=== PATIENT | male | born 1975 | race Caucasian/White ===

== ENCOUNTER 2019-03-26 21:46 | Emergency (ER) | payer BC, SELFPAY ==
[2019-03-26] VITALS (14 sets, daily range): BP systolic 125–139; BP diastolic 74–81; PULSE 67–80; RESP 12–20; TEMP 36.8; O2SAT 97–99
--- NOTE | 2019-03-26 21:50 | W.ED.GENAD ---
Discharge Plan Disposition Patient Disposition: HOME Condition: Improving Discharge Details Chief Complaint: Chest Pain Clinical Impression: Chest pain Primary Care Provider: Mary Gerardo V ED Provider: Osmany Katz Home Meds and New Rx's Prescriptions: Continued albuterol sulfate [ProAir HFA] 90 mcg/actuation Hfa Aerosol Inhaler 2 puff INHALATION Q4H PRNRF: 0 Prilosec OTC 20 mg Tablet,Delayed Release (Dr/Ec) 20 mg PO DAILY PRNRF: 0 Discharge Instructions Instructions: Chest Pain (ED) Additional Instructions: You were seen in the emergency department today for evaluation of chest pain. You need to follow-up with your primary care provider. Call in the morning to schedule an appointment. Return to the emergency department immediately if you develop any fevers, weakness, passing out, difficulty breathing, or for any other concerning or worsening symptoms at all. Medical Decision Making This patient is a 43-year-old male who presents to the emergency department with chief complaint of chest pain. Based on the history, exam, the differential is quite large including acute coronary syndrome, pneumonia. It is unlikely to be due to a pneumothorax, pericarditis, myocarditis, aortic dissection, Boerhaave syndrome, pulmonary embolism. Patient will have blood work, chest x-ray. He will then be reassessed. His EKG does not show any evidence of ischemia. He likely will be able to go home to follow-up with his primary care provider assuming his troponin is negative. Chest x-ray and lab work are all reassuring. Patient therefore will be discharged home. He is provided return precautions and discharge instructions. Medical Records Medical records reviewed: Yes I reviewed the patient's medical records. Lab Data Lab results reviewed: Yes I reviewed the patient's lab results. ECG Data Attestation: I personally reviewed and interpreted this ECG (s) as follows: Interpretation: Showing sinus rhythm, rate of 83, no ST elevation or depression, no Wellens warning, normal intervals and axis. HPI This patient is a 43-year-old male who presents to the emergency department with chief complaint of chest pain. He describes it as an ache. It has been present for 2 weeks but got worse this morning. Is been constant all day. No fevers, vomiting but he did feel nauseous today. He has had some shortness of breath. No palpitations or weakness or passing out. Pain does not radiate. It is retrosternal. No other recent illness. Patient has not had any diarrhea dysuria. Nothing really seems to make it better or worse. General Date/Time Provider Initiated Documentation: 03/26/19 21:50. Related Data Home Medications Medication Instructions Recorded Confirmed Prilosec OTC 20 mg PO DAILY PRN 03/26/19 03/26/19 albuterol sulfate [ProAir HFA] 2 puff INHALATION Q4H PRN 03/26/19 03/26/19 Allergies Allergy/AdvReac Type Severity Reaction Status Date / Time No Known Allergies Allergy Unverified 03/26/19 22:03 Review of Systems Narrative: Gen: no fevers. Card: chest pain. Resp: mild difficulty breathing. Abd: no vomiting, abd pain. The rest of the 10 point review of systems is negative except as described in the HPI and above in the ROS. [facility] Social History Smoking/Tobacco Use Status: Current-Occasional Tobacco Type: cigarettes Tobacco: How many years used: 20 Alcohol Intake: current Alcohol Intake frequency: a few times a week Alcohol type: beer Drug use: Never Substance use type: does not use Additional Social history: unable to ask d/t privacy Exam Narrative Exam Narrative: Gen: no acute distress, alert. Eyes: Pupils equal, reactive to light, EOMs intact. ENT: nose and ears normal, posterior pharynx without injection or swelling. Neck: normal ROM. Lung: Clear to auscultation bilaterally, no respiratory distress. Card: RRR, normal S1, S2, no M/R/G. 2+ radial pulses bilaterally. Abd: soft, non-tender, no hepatosplenomegaly. Upper extremity: no evidence of trauma. Lower extremity: no edema. Neuro: speech normal, no gross motor deficits. Psych: alert and oriented to person, place time, normal affect. Skin: warm, intact.
--- NOTE | 2019-03-26 22:06 | DI.RAD_ITS ---
EXAM: XR CHEST 2V PA LATERAL INDICATION: chest pain. COMPARISON: No exams were available for comparison TECHNIQUE: 2D digital imaging was performed. FINDINGS: Heart size is normal. The lungs are clear. No infiltrate, effusion or pneumothorax is seen. IMPRESSION: Negative chest x-ray.
[2019-03-26 22:21] LABS: Abs Immature Grans 0.02 k/cumm (0.0-0.09); Absolute Basophil Count 0.03 k/cumm (0.0-0.2); Absolute Eosinophil Count 0.11 k/cumm (0.0-0.7); Absolute Lymphocyte Count 2.02 k/cumm (1.2-3.4); Absolute Monocyte Count 0.66 k/cumm (0.11-0.7); Absolute Neutrophil Count 5.31 k/cumm (1.2-6.7); Basophils % 0.4; Eosinophils % 1.3; HCT 41.4 % (40.0-50.0); HGB 14.8 g/dL (13.5-17.5); Immature Grans % 0.2; Lymphocytes % 24.8; Mean Corp. HGB Concentration 35.7 g/dL (32.0-36.0); Mean Corpuscular Hemoglobin 31.7 pg (27.0-33.0); Mean Corpuscular Volume 88.7 fL (80-95); Mean Platelet Volume 9.1 fL (8.0-11.0); Monocytes % 8.1; Neutrophils % 65.2; Platelet Count 277 x1000/uL (130-400); RBC 4.67 m/cumm (4.50-6.00); RBC Distribution Width 12.5 % (11.8-14.1); White Blood Cell Count 8.15 k/cumm (4.4-10.8)
--- NOTE | 2019-03-26 22:34 | DI.VRAD_ITS ---
PROCEDURE INFORMATION: Exam: XR Chest, 2 Views Exam date and time: 03/26/2019 10:27 PM Clinical history: 43 years old, male; Chest pain; Type not specified TECHNIQUE: Imaging protocol: XR of the chest Views: 2 views. COMPARISON: No relevant prior studies available. FINDINGS: Lungs: Unremarkable. No consolidation. Pleural space: Unremarkable. No evidence of pneumothorax. Heart/Mediastinum: Unremarkable. Heart size within normal limits for technique. Bones/joints: Unremarkable. IMPRESSION: No acute findings. Dictated and Authenticated by: Schuyler Anderson MD. Ordering:DOMINGO Ceron MD
[2019-03-26 22:36] LABS: ALT 28 U/L (16-63); AST 12 U/L (15-37); Albumin 3.9 g/dL (3.4-5.0); Alkaline Phosphatase 82 U/L (46-116); BUN 10 mg/dL (7-18); Bilirubin, Total 0.3 mg/dL (0.2-1.0); CREATININE 0.93 mg/dL (0.70-1.30); Calcium 9.1 mg/dL (8.5-10.1); Chloride 104 mmol/L (98-107); Glucose 132 mg/dL (70-100); Magnesium 1.9 mg/dL (1.8-2.4); Potassium 3.5 mmol/L (3.5-5.1); Sodium 143 mmol/L (136-145); Total Protein 7.5 g/dL (6.4-8.2)
[2019-03-26] MEDS: Mylanta Suspension 30 ML CUP PO (22:37)
[2019-03-26 22:38] LABS: Troponin I < 0.05 ng/mL (0.00-0.06)
== END 2019-03-26 23:00 | disposition home or self-care (01) ==
LOC: ER 22:59
PROVIDERS: Emergency Provider Emergency Medicine; PCP Family Medicine
DX: R07.9 Chest pain, unspecified (principal)
CPT/HCPCS: 80053; 93005; 96374; 99284; 71046; 83735; 84484; 85025; 93010

== ENCOUNTER 2019-04-11 00:16 | Outpatient (CLI) | payer BC, SELFPAY ==
[2019-04-11 07:55] LABS: Calculated LDL 164 mg/dL; Cholesterol 233 mg/dL (50-200); Glucose 99 mg/dL (70-100); HDL Cholesterol 52 mg/dL (40-60); Triglyceride 88 mg/dL (30-150)
--- NOTE | 2019-04-11 08:30 | ETT_ITS ---
APPROVED REPORT Exam: Exercise Treadmill Patient Location: Out-Patient Room/Bed: Stress Nurse: Margaret Birch RN BMI: 28.88 Baseline Rhythm: NSR Indications: Chest Pain, SOB Medical History Medical History: Hyperlipidemia, Smoking Allergies: No known drug allergies Cardiac Risk Factors: Hyperlipidemia, FHX of CAD, Asthma, Smoking Pretest Chest Pain Characteristics: No chest pain Exercise History: Physically active Lung Sounds: Clear to auscultation Heart Sounds: Regular Stress Test Details Test: Exercise stress testing was performed using a Robert protocol. Rest Stress HR Resting HR: 66 bpm Max Heart Rate (APMHR): 177 bpm Resting HR Supine: 66 bpm Target HR (85% APMHR): 150 bpm Resting HR Standin bpm Max HR Achieved: 158 bpm % of APMHR: 89 Recovery HR: 89 bpm HR response to stress: Normal HR response to stress BP Resting BP: 122/80 mmHg Resting BP Supine: 122/80 mmHg Resting BP Standin/82 mmHg Max BP: 180/78 mmHg Recovery BP: 124/80 mmHg BP response to stress: Normal blood pressure response to stress. ECG Resting ECG: Sinus Rhythm Stress ECG: Sinus Tachycardia ST Change: Upsloping ST depression Lead(s): II, III Time of Change: 9min Stage: [address] Deviation: 1 mm Arrhythmia: VPC's, rare Recovery ECG: Sinus Rhythm Recovery ST Change: Normal Recovery Arrhythmia: None Clinical Time of Stop for Robert: 12:01 Reason for Termination: Fatigue Exercise duration: 12 min01 sec Highest Stage Achieved: Stage 5: 5.0 mph at 18% grade. Exercise capacity: 13.48 METs Functional Capacity: Average Capacity Stress ECG Conclusion 1. The patient exercised for 12 minutes (13.5 METS) which demonstrates good exercise capacity. 2. There were [address] elevations in the inferior leads. 3. The patient had no symptoms. 4. This represents an intermediate risk stress test. 5. The Esteves Score (6) estimates an annual cardiovascular mortality of 0% and a five year survival of 95%. Using the Esteves Score there is a low probability of any angiographic coronary disease. Protocol Used: Robert Protocol Stress Test Summary STAGE Time (mins) Speed (mph) Grade (%) HR BP SYMPTOMS METS Supine 66 122/80 Standing 75 122/82 98 1 3 1.7 10 105 130/80 98 4.6 2 6 2.5 12 114 150/80 98 7 3 9 3.4 14 132 176/84 98 10.2 4 12 4.2 16 158 178/84 97 12.9 5 15 5.0 18 17.2 1 min recovery 130 180/78 3 min recovery 99 150/78 6 min recovery 89 124/80
== END 2019-04-11 00:36 ==
PROVIDERS: PCP Family Medicine; Visit Provider Nurse Practitioner Family
DX: R07.9 Chest pain, unspecified (principal); R06.02 Shortness of breath; E78.5 Hyperlipidemia, unspecified; Z72.0 Tobacco use; Z82.49 Family history of ischemic heart disease and other diseases of the circulatory system; J45.909 Unspecified asthma, uncomplicated; Z13.220 Encounter for screening for lipoid disorders; Z13.1 Encounter for screening for diabetes mellitus
CPT/HCPCS: 36415; 80061; 82947; 93017

== ENCOUNTER 2020-05-03 17:27 | Outpatient (REF) | payer BC, SELFPAY ==
[2020-05-03 19:26] LABS: ALT 30 U/L (16-63); AST 23 U/L (15-37); Albumin 4.2 g/dL (3.4-5.0); Alkaline Phosphatase 74 U/L (46-116); Anion Gap 10.4 mmol/L (3-11); BUN 14 mg/dL (7-18); Bilirubin, Total 0.5 mg/dL (0.2-1.0); CO2 25.6 mmol/L (21.0-32.0); Calcium 9.4 mg/dL (8.5-10.1); Calculated LDL 148 mg/dL (<100); Chloride 104 mmol/L (98-107); Cholesterol 233 mg/dL (<200); Glucose 92 mg/dL (74-106); HDL Cholesterol 40 mg/dL (40-60); Potassium 4.8 mmol/L (3.5-5.1); Sodium 140 mmol/L (136-145); Total Protein 7.3 g/dL (6.4-8.2); Triglyceride 228 mg/dL (<150)
== END 2020-05-03 17:47 ==
LOC: NCHCN 17:27
PROVIDERS: PCP Family Medicine; Visit Provider Physician Assistant Medical
DX: Z00.00 Encounter for general adult medical examination without abnormal findings (principal); R07.9 Chest pain, unspecified
CPT/HCPCS: 80053; 80061

== ENCOUNTER 2021-06-17 04:18 | Outpatient (CLI) | payer BC, SELFPAY ==
[2021-06-17 09:36] LABS: ALT 26 U/L (16-63); AST 12 U/L (15-37); Alkaline Phosphatase 79 U/L (46-116); Anion Gap 8.5 mmol/L (3-11); BUN 18 mg/dL (7-18); Bilirubin, Total 0.6 mg/dL (0.2-1.0); CO2 28.5 mmol/L (21.0-32.0); CREATININE 0.9 mg/dL (0.70-1.30); Calculated LDL 140 mg/dL (<100); Chloride 102 mmol/L (98-107); Cholesterol 224 mg/dL (<200); Glucose 86 mg/dL (74-106); HDL Cholesterol 44 mg/dL (40-60); Potassium 4.1 mmol/L (3.5-5.1); Sodium 139 mmol/L (136-145); Total Protein 7.3 g/dL (6.4-8.2); Triglyceride 200 mg/dL (<150)
== END 2021-06-17 04:19 | disposition home or self-care (01) ==
LOC: LBO 04:18
PROVIDERS: PCP Family Medicine; Visit Provider Physician Assistant Medical
DX: Z00.00 Encounter for general adult medical examination without abnormal findings (principal); R79.89 Other specified abnormal findings of blood chemistry
CPT/HCPCS: 36415; 80053; 80061

== ENCOUNTER 2021-06-25 09:50 | Outpatient (CLI) | payer BC, SELFPAY ==
--- NOTE | 2021-06-25 | DI.RAD_ITS ---
Exam(s) XR CHEST 2V PA LATERAL EXAM: XR CHEST 2V PA LATERAL CLINICAL HISTORY: DYSPNEA,R06.00 TECHNIQUE: 2D digital imaging was performed. COMPARISON: CR,XR XR CHEST 2V PA LATERAL from 03/26/2019 FINDINGS: MEDIASTINUM: Normal. HEART: Normal. PULMONARY VASCULATURE: Normal. LUNGS: Clear. PLEURAL SPACE: No pleural effusion or pneumothorax. BONE:Unremarkable for age. IMPRESSION: No acute abnormality. DATA REPOSITORY: RADIATION DOSE DELIVERED:
== END 2021-06-25 10:10 ==
PROVIDERS: PCP Family Medicine; Visit Provider Physician Assistant Medical
DX: R06.09 Other forms of dyspnea (principal)
CPT/HCPCS: 71046

== ENCOUNTER 2022-06-03 06:09 | Day surgery (SDC) | payer BC, SELFPAY ==
[2022-06-03 06:25] VITALS: BP 126/77; PULSE 85; RESP 16; TEMP 36.7; O2SAT 98
[2022-06-03] MEDS: Lactated Ringers 1,000 ML 80 ML IV (06:53)
--- NOTE | 2022-06-03 07:20 | W.ANESPRE ---
General Info Date of Service Date Performed: 06/03/22 Height: 5 ft 8 in Weight: 91.4 kg Body Mass Index (BMI): 30.6 Surgical Procedure: Operation Date: 06/03/22 07:35 Proposed Procedure Side Surgeon p Rachael Mix MD Meds Allergies and Home Medications Allergies Allergy/AdvReac Type Severity Reaction Status Date / Time No Known Allergies Allergy Unverified 06/02/22 10:10 Home Medication Medication Instructions Recorded albuterol sulfate 90 mcg/actuation 2 puff inhalation Q4H PRN 03/26/19 aerosol inhaler (ProAir HFA) budesonide-formoterol HFA 80 2 puff inhalation BID 07/31/21 mcg-4.5 mcg/actuation aerosol inhaler (Symbicort) fexofenadine 60 mg tablet (Glo 60 mg PO BID 07/31/21 Allergy) pantoprazole 40 mg tablet,delayed 40 mg PO DAILY 07/31/21 release bisacodyl 5 mg tablet,delayed 5 mg PO ONCE #4 tabs 05/07/22 release (Dulcolax (bisacodyl)) polyethylene glycol 3350 17 17 g PO ONCE #238 grams 05/07/22 gram/dose oral powder Current Visit Medications: Current Medications Generic Name Dose Route Start Last Admin Trade Name Freq PRN Reason Stop Dose Admin Ringer's Solution 1,000 mls @ 80 mls/hr 06/03/22 06:00 06/03/22 06:53 IV 06/03/22 23:59 80 mls/hr INFUSION MALIKA Administration IV Miscellaneous Supplies 1 each 06/03/22 06:00 Iv Access IV 06/03/22 23:59 DIRECTED MALIKA Sodium Chloride 0 ml 06/03/22 06:00 Normal Saline Flush 10 Ml Syr IV 06/03/22 23:59 PRN PRN Sodium Chloride 0 ml 06/03/22 06:00 Normal Saline 10 Ml Vial IJ 06/03/22 23:59 DIRECTED PRN Sterile Water 0 ml 06/03/22 06:00 Water,Injection,Sterile 10 Ml Vial IJ 06/03/22 23:59 DIRECTED PRN PFSH Active Problems Active Problems: Problem Status Onset Code Hand numbness R20.0 Dyspnea R06.00 Diastasis recti M62.08 Screening for colon cancer Z12.11 Medical History Medical History Asthma, mild intermittent Chest pain stress test wnl, no current chest pain at time of this assessment GERD (gastroesophageal reflux disease) Tobacco use Medical History Comments:: Asthma, uses an inhaler, used today 06/03/22. Did not bring inhaler into [facility] Surgical History Surgical History H/O shoulder surgery Right History of appendectomy History of vasectomy Tobacco Smoking/Tobacco Use Status: Current-Occasional Tobacco Type: cigarettes Alcohol Alcohol Intake: current Alcohol intake frequency: 0-2 drinks per day Alcohol type: beer Substance Use Substance use: Never Substance use type: does not use Vital Signs and Lab Results Vital Signs Most Recent Vital Signs in EMR: Most Recent Vital Signs Temp Pulse Resp BP Pulse Ox 36.7 C 85 16 126/77 98 06/03/22 06:25 06/03/22 06:25 06/03/22 06:25 06/03/22 06:25 06/03/22 06:25 Lab Results Blood Type / Crossmatch: No Data to Display Complete Blood Count: No Data to Display Complete Metabolic Panel: No Data to Display Liver Function Panel: No Data to Display Coagulation Panel: No Data to Display Cardiac Panel: No Data to Display Arterial Blood Gas: No Data to Display Venous Blood Gas: No Data to Display Pancreas Panel: No Data to Display Thyroid Panel: No Data to Display Infectious Disease: No Data to Display Blood Cultures: No Data to Display Toxicology Panel: No Data to Display Anesthesia Assessment and Plan Anesthesia History Personal History: No History of Anesthesia Complications Family History: No Family History of Anesthesia Complications Exercise Tolerance Exercise Tolerance: Metabolic Equivalents>4 Pertinent Negatives Pertinent Negatives: No Symptoms of GERD, No Major Cardiovascular Symptoms or Complaints, No Major Pulmonary Symptoms or Complaints and No History of CVA/TIA Cardiac & Pulmonary Exam Cardiac Exam: Normal S1/S2 Heart Sounds Pulmonary Exam: Clear Bilateral Breath Sounds Cardiac and Pulmonary Comment:: Smoker, used inhaler prophylactically this am. Implantable Cardiac Device Does patient have a Pacemaker or an ICD?: No Airway Exam Known Difficult Airway: No Mallampati Class: 2 Mouth Opening: Normal (> 3cm) Thyromental Distance: Greater than 3 cm Facial Hair: Full Quiroz Neck Range of Motion: Full ROM Neck Circumference: Thick Teeth Condition: Normal Dentition ASA Classification ASA Score: ASA 2 Emergency Case?: No NPO Status NPO Status: NPO Clears >2 hours, Solids >8 hours Anesthesia Plan Resuscitation Status: Full Code Anesthesia Technique: General Anesthesia Airway Planned: Natural Airway Monitors Used: Standard Monitors
[2022-06-03 07:24] VITALS: BMI 30.6
--- NOTE | 2022-06-03 07:41 | BOWEL_PTH ---
PATIENT: Harrison Reyes LOC: [facility] U#:[id number] AGE/SX: 46/M ROOM: RE06/03/[address]: Dante Mix : 1975 BED: DIS: 06/03/2022 SPEC #: [id number] RECD: 06/03/22 12:46 STATUS: ALBERT RE #: [id number] MAIRA: 06/03/22 07:[address]: Dante Mix DEPT: Surgical Specimen RECD BY: Kimberly Moran ENTERED: 06/03/22 12:47 SP TYPE: Bowel OTHR DR: Mary Gerardo V Tissues: 1 - BIOPSY BOWEL 2 - BIOPSY BOWEL Procedures: GROSS AND MICRO LEVEL 4 Comments: [id number]
[2022-06-03 07:59] VITALS: BP 110/71; PULSE 79; RESP 16; TEMP 36.5; O2SAT 96
--- NOTE | 2022-06-03 08:02 | COLE_ITS ---
Date of service: 06/03/22 Time of Service: 08:03 Colonoscopy Report Procedure Description: Procedures performed: 1. Colonoscopy with snare polypectomy x1 2. Cold forceps polypectomy x1 Preoperative diagnosis: screening colonoscopy Postoperative diagnosis: Colon polyps Surgeon: Anu Mix Anesthesia: Erendira Indication for procedure: Patient is a 46-year-old man with no family history of colon cancer or polyps, he has no symptoms, he has never had a screening colonoscopy. Surgical history of appendectomy only. Findings: A 2-3 mm sessile polyp was removed with cold forceps in the proximal rectum. This polyp appeared hyperplastic. In the distal rectum a 5-7 mm ad enomatous?appearing sessile polyp was removed with hot snare technique. Surveillance/follow-up recommendations: 3-10 years depending on pathology. Villous or sessile serrated histology warrants every 3 years, small adenoma 7-10 years, if both polyps are hyperplastic by chance then 10 years. Complications: None Blood loss: Minimal Specimens:?? YES Quality of Prep:?? Good Procedure in detail: Written consent was obtained from the patient who was in agreement with the risks, benefits and indications of the procedure.? We went to the endoscopy suite and laid the patient in left lateral decubitus position.? Anesthesia was administered which was tolerated well.? A timeout was performed and when we are all in agreement we began the procedure. Digital rectal exam and visual examination was performed and within normal limits.? A well?lubricated colonoscope was advanced without difficulty all the way to the cecum identified by the ileocecal valve, and triangular folds and appendiceal orifice.? It was then slowly withdrawn.?? Retroflexion was performed in the rectum.? The findings/interventions are noted above. The scope was then removed and the patient tolerated the procedure well and was then taken back to the PACU in hemodynamically stable condition.
--- NOTE | 2022-06-03 08:26 | W.ANESPOSTOP ---
Postoperative Evaluation Date, Time and Location Date Performed: 06/03/22 Time Performed: 08:00 Patient Location: Day Surgery Unit Vital Signs Most Recent Imported Vital Signs: Most Recent Vital Signs Temp Pulse Resp BP Pulse Ox 36.5 C 79 16 110/71 96 06/03/22 07:59 06/03/22 07:59 06/03/22 07:59 06/03/22 07:59 06/03/22 07:59 Pain Score Most Recent Pain Score: Most Recent Pain Score Pain Level 0 06/03/22 07:59 Assessment Mental Status: Awake (Alert & Oriented to Patient Baseline) Airway and Respiratory Function: Patent airway with normal (patient baseline) respiratory exam Cardiovascular Function: Hemodynamically Stable Hydration Status: Adequately Hydrated Nausea & Vomiting: No Nausea or Vomiting Pain: Pt. Denies Any Pain Peripheral Nerve Block: Patient did not receive a nerve block
[2022-06-03 08:28] VITALS: BP 111/72; PULSE 70; RESP 16; TEMP 36.5; O2SAT 97
== END 2022-06-03 08:35 | disposition home or self-care (01) ==
PROVIDERS: PCP Family Medicine; Visit Provider Student in an Organized Health Care Education/Training Program
PROC: 0DJD8ZZ Inspection of Lower Intestinal Tract, Via Natural or Artificial Opening Endoscopic (ICD-10-PCS; CPT 45378; principal; 2022-06-03 07:30)
DX: Z12.11 Encounter for screening for malignant neoplasm of colon (principal); K63.5 Polyp of colon; K62.1 Rectal polyp
CPT/HCPCS: 45385; 45380; 88305

== ENCOUNTER 2023-05-31 00:23 | Emergency (ER) | payer BC, SELFPAY ==
[2023-05-31] VITALS (30 sets, daily range): BP systolic 112–155; BP diastolic 73–92; PULSE 59–90; RESP 11–26; TEMP 36.7; O2SAT 95–98
--- NOTE | 2023-05-31 00:15 | RT.EKG_ITS ---
APPROVED REPORT Exam: Resting ECG Reason for Exam: chest pain Patient Location: E HR:66 bpm ECG Measurements Heart Rate 66 AXIS KS 138 P 12 QRSd 85 QRS -9 QT 377 T 4 QTc 394 Conclusion Sinus rhythm...normal P axis, V-rate 60- [address] segment or T wave abnormlaiteis to suggest occlusive WA.
--- NOTE | 2023-05-31 00:45 | DI.RAD_ITS ---
Exam(s) XR CHEST 2V PA LATERAL EXAM: XR CHEST 2V PA LATERAL CLINICAL HISTORY: chest pain TECHNIQUE: 2D digital imaging was performed of the chest. Two images were obtained. PA and lateral views were obtained. COMPARISON: CR XR CHEST 2V PA LATERAL from 06/25/2021 FINDINGS: MEDIASTINUM: Normal. HEART: Normal. PULMONARY VASCULATURE: Normal. LUNGS: There is a question of a area of nodularity in the right lung base overlying the right 8th rib . It may represent a superimposition of shadows, but a CT scan of the chest is recommended as an out patient for further evaluation. PLEURAL SPACE: No pleural effusion or pneumothorax. BONE:Within normal limits for the patient's age. OTHER FINDINGS:Normal. IMPRESSION: Question of an area of nodularity in the right lung base. A CT scan of the chest is recommended for further evaluation. Unexpected findings DATA REPOSITORY: RADIATION DOSE DELIVERED:
--- NOTE | 2023-05-31 00:56 | W.ED.GENAD ---
HPI General Stated Complaint: Chest Pain Mode of arrival: ambulatory. JONATHAN: 3 Date/Time Provider Initiated Documentation: 05/31/23 00:37. Limitations to Documentation: no limitations. Information obtained by: patient. HPI Narrative: 47yo M with hx of asthma, GERD, right shoulder surgery, presenting for chest pain. Pain is dull, substernal, constant, and radiates to his right shoulder and into his right scapula. Started three weeks ago and has been waxing and waning in severity since then, tonight severe enough that he could not sleep. Not improved with home ibuprofen today. No shortness of breath, lightheadedness, or syncope. No family history of early cardiac disease. He is otherwise in his usual state of health with no fevers, chills, rash, nausea, vomiting, abdominal pain, numbness, weakness, dysuria, hematuria, LE edema, orthopnea, or other concerns. Related Data Home Medications Medication Instructions Recorded Confirmed albuterol sulfate 90 mcg/actuation 2 puff inhalation Q4H PRN 03/26/19 05/31/23 aerosol inhaler (ProAir HFA) budesonide-formoterol HFA 80 2 puff inhalation BID 07/31/21 05/31/23 mcg-4.5 mcg/actuation aerosol inhaler (Symbicort) fexofenadine 60 mg tablet (Glo 60 mg PO BID 07/31/21 05/31/23 Allergy) pantoprazole 40 mg tablet,delayed 40 mg PO DAILY 07/31/21 05/31/23 release bisacodyl 5 mg tablet,delayed 5 mg PO ONCE #4 tabs 05/07/22 05/31/23 release (Dulcolax (bisacodyl)) polyethylene glycol 3350 17 17 g PO ONCE #238 grams 05/07/22 05/31/23 gram/dose oral powder diazepam 5 mg tablet (Valium) 5 mg PO TID PRN #10 tabs 05/31/23 Previous Rx's Medication Instructions Recorded bisacodyl 5 mg tablet,delayed 5 mg PO ONCE #4 tabs 05/07/22 release (Dulcolax (bisacodyl)) polyethylene glycol 3350 17 17 g PO ONCE #238 grams 05/07/22 gram/dose oral powder diazepam 5 mg tablet (Valium) 5 mg PO TID PRN #10 tabs 05/31/23 Allergies Allergy/AdvReac Type Severity Reaction Status Date / Time No Known Allergies Allergy Unverified 06/02/22 10:10 Review of Systems Narrative: see HPI PFSH All Active Problems (Updated 05/31/23 @ 03:08 by Velma Harrell MD) Chest pain (Acute) Tubular adenoma of colon (Acute) Hand numbness (Acute) Dyspnea (Acute) Diastasis recti (Acute) Screening for colon cancer (Acute) Medical History (Updated 05/31/23 @ 03:08 by Velma Harrell MD) Tobacco use Asthma, mild intermittent Chest pain stress test wnl, no current chest pain at time of this assessment GERD (gastroesophageal reflux disease) Surgical History (Updated 06/18/22 @ 11:33 by Margaret Voss RN) History of colonoscopy (~05/2022) H/O shoulder surgery Right History of vasectomy History of appendectomy Social History (Updated 05/10/22 @ 21:20 by AMBROSE Bone) Smoking/Tobacco Use Status: Current-Occasional Tobacco Type: cigarettes Tobacco: How many years used: 20 Smoking risk assessment performed?: Yes Alcohol Intake: current Alcohol Intake frequency: 0-2 drinks per day Alcohol type: beer Drug use: Never Substance use type: does not use Current gender identity: male Do you feel safe at home: Yes Do you feel safe in your relationship?: Yes PAWSS Have you Been Recently Intoxicated or Drunk Within the Last 30 days?: No Have you Ever Experienced Previous Episodes of Alcohol Withdrawal?: No Have you ever Experienced Withdrawal Seizures?: No Have you ever Experienced Delirium Tremens(DT)s?: No Have you ever undergone Alcohol Rehabilitation Treatment (i.e, inpt ot outpatient treatment programs)?: No Have you ever Experienced Blackouts?: No Have you ever Combined Alcohol with other Downers within the last 90 days?: No Have you ever Combined Alcohol with any other Substance of Abuse during the last 90 days?: No Positive Blood Alcohol level on Presentation? [PCS.BAL]: Unable to Obtain Evidence of Increased Autonomic Activity (i.e. HR>120, tremor, sweating, agitation, nausea)?: No Result: 0 Exam Narrative Exam Narrative: General: Alert, well appearing, well nourished, in no acute distress. Head: Normocephalic, atraumatic Neck: Trachea midline, ?Neck supple. Cardiac: ?RRR, no murmurs appreciated Resp: No respiratory distress. CTAB. Abd: ?Soft, non-distended, nontender : ?No suprapubic tenderness. No CVA tenderness. Extremities: ?No deformities.? No peripheral edema. MSK: Anterior right shoulder, anterior right chest wall, and scapula TTP. Palpable muscle spasm inferior to right scapula. Mild pain with active ROM at right shoulder. Neurologic: GCS 15. ? Moves all extremities freely against gravity Course Vital Signs Vital signs: Vital Signs Temperature 36.7 C 05/31/23 00:26 Pulse 73 05/31/23 00:26 Respiratory Rate 18 05/31/23 00:26 Blood Pressure 143/89 H 05/31/23 00:26 Pulse Oximetry 97 05/31/23 00:26 Temperature 36.7 C 05/31/23 00:26 Temperature Source Temporal Artery Scan 05/31/23 00:26 Pulse 73 05/31/23 00:26 Respiratory Rate 18 05/31/23 00:30 Respiratory Effort Normal 05/31/23 00:30 Respiratory Depth Normal 05/31/23 00:30 Respiratory Pattern Normal 05/31/23 00:30 Blood Pressure 143/89 H 05/31/23 00:26 Pulse Oximetry 97 05/31/23 00:26 Oxygen Delivery Method Room Air 05/31/23 00:26 Oxygen Flow Rate 0 05/31/23 00:26 Pain Level 4 05/31/23 00:26 Medical Decision Making 47yo M with hx of asthma, GERD, right shoulder surgery, presenting for dull substernal chest pain radiating into right shoulder and scapula. Onset three weeks ago, constant since then and waxing in severity, tonight preventing him from sleeping despite home ibuprofen. No shortness of breath, lightheadedness, or syncope. No family history of early cardiac disease. Slightly hypertensive on arrival, vital signs otherwise reassuirng. On exam he does have reproducible tenderness to his anterior right shoulder, anterior right chest wall, and scapula TTP. Palpable muscle spasm inferior to right scapula as well as mild pain with active ROM at right shoulder. Favor MSK etiology given exam and duration of symptoms. Will evaluate for potentially life threatening causes with EKG, CXR, labs. No hypoxia, tachycardia, shortness of breath, or pleuritic pain to suggest pulmonary embolism; would not pursue further with dimer or CT imaging. EKG NSR, appropriate intervals, not ST segment or T wave abnormalities to suggest occlusive WI. CXR independently reviewed, no focal pneumonia or pneumothorax on my view, radiology read below- with incidently noted nodule in right base. Patient advised of this finding and instructed to followup with his PCP . Labs reviewed as below, CBC& CMP reassuring with no actionable abnormalitites, no LFT changes to suggest cholecystitis. Troponin negative in the setting of three weeks of constant pain, would not repeat. HEART score 3 (A1, RF2), low risk. Will treat symptomatically with tylenol, toradol, valium for spasm On reassessment patoient sleeping, appears comfortable. Awakened, states pain is still present but much improved (back/shoulder especially better). Advised close PCP followup. Discharged home with short course of valium. Discharge instructions and return precautions were reviewd with patient who verbalized understanding. All questions were answered and he is in full agreement with the plan. Imaging Data Radiologic Study: Imaging: X-Ray Radiologist's impression: IMPRESSION: Nodular opacity in the right base. Nonemergent chest CT follow-up recommended. Lab Data Lab results reviewed: Yes I reviewed the patient's lab results. Labs: Laboratory Tests Range/Units 05/31/23 00:38 WBC (4.4-10.8) 10^3/uL 6.91 RBC (4.36-5.78) 10^6/uL 4.40 Hgb (13.5-17.5) g/dL 13.6 Hct (40.0-50.0) % 38.8 L MCV (80-95) fL 88 MCH (27.0-33.0) pg 30.9 MCHC (32.0-36.0) % 35.1 RDW (11.8-14.1) % 12.3 Plt Count (130-400) 10^3/uL 211 MPV (8.0-11.0) fL 9.2 Immature Gran % 0.6 Neutrophils % 42.5 Lymphocytes % 44.9 Monocytes % 8.7 Eosinophils % 2.6 Basophils % 0.7 Nucleated RBC % (0.0-0.3) % 0.0 Absolute Neutrophils (1.2-6.7) 10^3/uL 2.94 Absolute Lymphocytes (1.2-3.4) 10^3/uL 3.10 Absolute Monocytes (0.1-0.8) 10^3/uL 0.60 Absolute Eosinophils (0.0-0.7) 10^3/uL 0.18 Absolute Basophils (0.0-0.2) 10^3/uL 0.05 Sodium (136-145) mmol/L 141 Potassium (3.5-5.1) mmol/L 3.9 Chloride (98-107) mmol/L 106 Carbon Dioxide (21.0-32.0) mmol/L 25.6 Anion Gap (3-11) mmol/L 9.4 BUN (7-18) mg/dL 15 Creatinine (0.70-1.30) mg/dL 0.9 Est GFR (CKD-EPI 2020) (mL/min/1.73m2) 106.01 Glucose (74-106) mg/dL 99 Calcium (8.5-10.1) mg/dL 9.3 Total Bilirubin (0.2-1.0) mg/dL 0.3 AST (15-37) U/L 13 L ALT (16-63) U/L 30 Alkaline Phosphatase (46-116) U/L 72 Troponin I (<or=60) ng/L < 50 Total Protein (6.4-8.2) g/dL 6.7 Albumin (3.4-5.0) g/dL 3.3 L Quality:SDOH Health Related Social Needs: No Data to Display Discharge Plan Disposition Patient Disposition: Home Condition: Good Discharge Details Clinical Impression: Chest pain Primary Care Provider: Mary Gerardo V ED Provider: Velma Harrell Home Meds and New Rx's Prescriptions: New diazepam [Valium] 5 mg tablet 5 mg PO TID PRNQty: 10 0RF No Action bisacodyl [Dulcolax (bisacodyl)] 5 mg tablet,delayed release (DR/EC) 5 mg PO ONCE Qty: 4 0RF Rx Instructions: Take according to provider's instructions for colonoscopy prep. polyethylene glycol 3350 17 gram/dose powder 17 g PO ONCE Qty: 238 0RF Rx Instructions: To be taken as directed by prescriber's office for colonoscopy prep. budesonide-formoterol [Symbicort] 80-4.5 mcg/actuation HFA aerosol inhaler 2 puff inhalation BID fexofenadine [Glo Allergy] 60 mg tablet 60 mg PO BID pantoprazole 40 mg tablet,delayed release (DR/EC) 40 mg PO DAILY albuterol sulfate [ProAir HFA] 90 mcg/actuation Hfa Aerosol Inhaler 2 puff INHALATION Q4H PRN Discharge Instructions Instructions: Chest Pain (ED) Additional Instructions: Tylenol and ibuprofen over the counter for pain; follow the directions on the bottle. You can take valium if necessary for severe pain/spasm up to three times a day. Call your primary care doctor today to schedule an appointment within 48 hours to follow up on your visit today. Mention the small lung nodule seen on your chest xray- an outpatient CT scan is recommended to better evaluate this. Return to the emergency department for new or worsneing symptoms including new/different/worse pain, difficulty breathing, feeling like you are going to pass out, or if you have any other concerns. Referrals: Mary Gerardo MD [Primary Care Provider] -
[2023-05-31 01:01] LABS: Abs Immature Grans 0.04 10^3/uL (0.0-0.06); Absolute Basophil Count 0.05 10^3/uL (0.0-0.2); Absolute Eosinophil Count 0.18 10^3/uL (0.0-0.7); Absolute Neutrophil Count 2.94 10^3/uL (1.2-6.7); Basophils % 0.7; Eosinophils % 2.6; HCT 38.8 % (40.0-50.0); HGB 13.6 g/dL (13.5-17.5); Immature Grans % 0.6; Lymphocytes % 44.9; MCH 30.9 pg (27.0-33.0); MCHC 35.1 % (32.0-36.0); MCV 88 fL (80-95); MPV 9.2 fL (8.0-11.0); Monocytes % 8.7; Neutrophils % 42.5; Platelet Count 211 10^3/uL (130-400); RDW 12.3 % (11.8-14.1); RDW-SD 39.7 fL; WBC 6.91 10^3/uL (4.4-10.8)
[2023-05-31] MEDS: Acetaminophen 500 MG TAB 1000 MG PO (01:08)
[2023-05-31 01:23] LABS: ALT 30 U/L (16-63); AST 13 U/L (15-37); Albumin 3.3 g/dL (3.4-5.0); Alkaline Phosphatase 72 U/L (46-116); Anion Gap 9.4 mmol/L (3-11); BUN 15 mg/dL (7-18); Bilirubin, Total 0.3 mg/dL (0.2-1.0); CO2 25.6 mmol/L (21.0-32.0); CREATININE 0.9 mg/dL (0.70-1.30); Calcium 9.3 mg/dL (8.5-10.1); Chloride 106 mmol/L (98-107); Estimated GFR 106.01 (mL/min/1.73m2); Glucose 99 mg/dL (74-106); Potassium 3.9 mmol/L (3.5-5.1); Sodium 141 mmol/L (136-145); Total Protein 6.7 g/dL (6.4-8.2); Troponin I < 50 ng/L (<or=60)
[2023-05-31] MEDS: diazePAM 5 MG TAB PO (02:07)
[2023-05-31] MEDS: Ketorolac 15 MG/ML VIAL IVP (02:08)
--- NOTE | 2023-05-31 03:03 | DI.VRAD_ITS ---
PROCEDURE INFORMATION: Exam: XR Chest Exam date and time: 05/31/2023 1:08 AM Age: 47 years old Clinical indication: Sternal or substernal pain; Patient HX: Chest pain TECHNIQUE: Imaging protocol: Radiologic exam of the chest. Views: 2 views. COMPARISON: CR XR CHEST 2V PA LATERAL 06/25/2021 8:10 AM FINDINGS: Lungs: 1.5 cm nodular opacity at the right base. Pleural spaces: No pleural effusion or pneumothorax. Heart/Mediastinum: Unremarkable. No cardiomegaly. Bones/joints: Unremarkable. IMPRESSION: Nodular opacity in the right base. Nonemergent chest CT follow-up recommended. Dictated and Authenticated by: Isak Hurtado MD. Ordering:CORNELIA Carreon MD
[2023-06-01 12:45] LABS: Calculated LDL 158 mg/dL (<100); Cholesterol 258 mg/dL (<200); HDL Cholesterol 46 mg/dL (40-60); Triglyceride 272 mg/dL (<150)
== END 2023-05-31 03:22 | disposition home or self-care (01) ==
PROVIDERS: Physician Assistant Medical; Emergency Provider Student in an Organized Health Care Education/Training Program; PCP Family Medicine
DX: R07.9 Chest pain, unspecified (principal); M25.511 Pain in right shoulder; K21.00 Gastro-esophageal reflux disease with esophagitis, without bleeding
CPT/HCPCS: 36415; 80053; 80061; 93005; 99283; 71046; 84484; 85025; 93010; J1885

== ENCOUNTER 2024-03-28 09:02 | Outpatient (REF) | payer BC, SELFPAY ==
[2024-03-28 16:56] LABS: Calculated LDL 145 mg/dL (<100); Cholesterol 244 mg/dL (<200); HDL Cholesterol 48 mg/dL (40-60); TSH (W/Ref FT4) 1.96 uIU/mL (0.36-3.74); Triglyceride 256 mg/dL (<150)
[2024-03-31 14:59] LABS: Testosterone, Total 473 ng/dL (240-950)
== END 2024-03-28 09:03 | disposition home or self-care (01) ==
LOC: NCHCN 09:02
PROVIDERS: PCP Family Medicine; Visit Provider Physician Assistant Medical
DX: E78.5 Hyperlipidemia, unspecified (principal); F52.21 Male erectile disorder
CPT/HCPCS: 80061; 84403; 83036; 84443